=== PATIENT | female | born 1975 | race Caucasian/White ===

== ENCOUNTER 2021-11-08 14:01 | Observation (INO) | payer MEDICARE ==
[2021-11-08 17:17] LABS: Appearance,Urine Clear (Clear); Bilirubin,Urine Negative (Negative); Blood,Urine Negative (Negative); Color,Urine Yellow; Glucose,Urine (UA) Negative (Negative); Ketones,Urine 1+ (Negative); Leukocyte Esterase,Urine Negative (Negative); Nitrite,Urine Negative (Negative); PH, Urine 5.5 (5.0-8.0); Protein,Urine Negative (Negative); Specific Gravity,Urine 1.016 (1.001-1.035); Urobilinogen,Urine <2.0 mg/dL (<2.0)
[2021-11-08] MEDS ORDERED: SODIUM CHLORIDE 0.9% 2,000 ML IV STA (17:20)
[2021-11-08] MEDS ORDERED: ONDANSETRON 4 MG/2 ML VIAL IVP STA (17:20)
[2021-11-08] MEDS ORDERED: ACETAMINOPHEN TAB 500 MG TAB PO STA (17:21)
[2021-11-08 18:33] LABS: Basophils % (A) 0 %; Eosinophils # (A) 0.2 k/uL (0-0.7); Eosinophils % (A) 2 %; HCT 45.2 % (34.0-46.0); HGB 14.7 gm/dL (11.4-16.0); Lymphocytes # (A) 2.8 k/uL (1.0-4.8); Lymphocytes % (A) 28 %; MCHC 32.5 g/dL (31.0-37.0); MCV 95.4 fL (80.0-100.0); Mean Platelet Volume 9.7; Monocytes # (A) 0.3 k/uL (0-1.0); Monocytes % (A) 3 %; Neutrophils # (A) 6.6 k/uL (1.3-7.7); Neutrophils % (A) 65 %; Platelet Count 198 k/uL (150-450); RBC 4.74 m/uL (3.80-5.40); RDW 13.4 % (11.5-15.5); WBC 10.2 k/uL (3.8-10.6)
--- NOTE | 2021-11-08 18:43 | ED ---
Abdominal Pain HPI - General Chief Complaint: Abdominal Pain Stated Complaint: Pancreatitis Time Seen by Provider: 11/08/21 17:12 Source: patient Mode of arrival: ambulatory Limitations: no limitations - History of Present Illness Initial Comments: Patient is a 46-year-old female with past medical history of type 1 diabetes who presents to the emergency department with a chief complaint of her abdominal pain. Patient states she was diagnosed with pancreatitis for the first time at [facility] today. Patient was unhappy with her roommate in the hospital and wanted to be a hospital closer to home. States she has been experiencing upper middle abdominal pain for the past 3 days. Describes it as a continuous severe aching with radiation to the chest and back. Patient states the pain started after she started taking Myrbetriq which was a new prescription for her. Endorses nausea without vomiting. Denies fever, chills, sweating, d iarrhea, burning with urination, blood in the urine, and other concerns. Last bowel movement was today which she states was normal, nonbloody. Admits to drinking 2-3 shots of liquor tonight. Admits to daily marijuana use. - Related Data Allergies Allergy/AdvReac Type Severity Reaction Status Date / Time medroxyprogesterone Allergy Unknown Verified 11/08/21 15:12 [From Depo-Provera] tree nut [Pecan] Allergy Unknown Verified 11/08/21 15:12 walnut Allergy Unknown Verified 11/08/21 15:12 Review of Systems ROS Statement: Those systems with pertinent positive or pertinent negative responses have been documented in the HPI. ROS Other: All systems not noted in ROS Statement are negative. Past Medical History Past Medical History: Diabetes Mellitus History of Any Multi-Drug Resistant Organisms: None Reported Past Surgical History: Tubal Ligation Additional Past Surgical History / Comment(s): D/C Past Psychological History: No Psychological Hx Reported Smoking Status: Current every day smoker Past Alcohol Use History: Heavy Past Drug Use History: Marijuana General Exam Limitations: no limitations General appearance: alert Head exam: Present: atraumatic, normocephalic, normal inspection Eye exam: Present: normal appearance, PERRL, EOMI. Absent: scleral icterus, conjunctival injection, periorbital swelling Respiratory exam: Present: normal lung sounds bilaterally. Absent: respiratory distress, wheezes, rales, rhonchi, stridor Cardiovascular Exam: Present: regular rate, normal rhythm, normal heart sounds. Absent: systolic murmur, diastolic murmur, rubs, gallop, clicks GI/Abdominal exam: Present: soft, tenderness (epigastric), normal bowel sounds. Absent: distended, guarding, rebound, rigid Back exam: Present: normal inspection. Absent: tenderness, paraspinal tenderness, vertebral tenderness Neurological exam: Present: alert, oriented X3, CN II-XII intact Psychiatric exam: Present: normal affect, normal mood Skin exam: Present: warm, dry, intact, normal color. Absent: rash Course Vital Signs 11/08/21 11/08/21 15:06 18:37 Temperature 98.2 F Pulse Rate 87 87 Respiratory 16 18 Rate Blood Pressure 173/99 160/83 O2 Sat by Pulse 99 99 Oximetry Medical Decision Making - Medical Decision Making This is a 46-year-old female who presents after pancreatitis diagnosis [facility] today. Thorough history and examination were performed. Patient is well-appearing. She is a daily alcohol user and started new medication Myrbetriq 3 days ago. The abdomen is soft. There is moderate epigastric tenderness. Pain and nausea controlled. Patient did not have any episodes of vomiting in the emergency department. Laboratory studies obtained. White blood cell count is within normal limits at 10.2. Lipase is elevated at 2301. Amylase is elevated to 289. Gallbladder ultrasound was obtained which shows no gallstones or dilated ducts. There does not appear to be a correlation between myrbetriq and pancreatitis. With normal gallbladder ultrasound this appears to be alcohol induced pancreatitis. Results discussed with patient who is agreeable to admission. Case discussed with Dr. Mullins who accepts admission. Patient is on soft liquid diet. Admitted in stable condition. Dr. Silvestre is my attending. - Lab Data Result diagrams: 11/08/21 18:29 11/08/21 18:29 Lab Results 11/08/21 11/08/21 11/08/21 Range/Units 17:02 17:04 18:29 WBC 10.2 (3.8-10.6) k/uL RBC 4.74 (3.80-5.40) m/uL Hgb 14.7 (11.4-16.0) gm/dL Hct 45.2 (34.0-46.0) % MCV 95.4 (80.0-100.0) fL MCH 31.0 (25.0-35.0) pg MCHC 32.5 (31.0-37.0) g/dL RDW 13.4 (11.5-15.5) % Plt Count 198 (150-450) k/uL MPV 9.7 Neutrophils % 65 % Lymphocytes % 28 % Monocytes % 3 % Eosinophils % 2 % Basophils % 0 % Neutrophils # 6.6 (1.3-7.7) k/uL Lymphocytes # 2.8 (1.0-4.8) k/uL Monocytes # 0.3 (0-1.0) k/uL Eosinophils # 0.2 (0-0.7) k/uL Basophils # 0.0 (0-0.2) k/uL Sodium (137-145) mmol/L Potassium (3.5-5.1) mmol/L Chloride (98-107) mmol/L Carbon Dioxide (22-30) mmol/L Anion Gap mmol/L BUN (7-17) mg/dL Creatinine (0.52-1.04) mg/dL Est GFR (CKD-EPI)AfAm (>60 ml/min/1.73 sqM) Est GFR (CKD-EPI)NonAf (>60 ml/min/1.73 sqM) Glucose (74-99) mg/dL Plasma Lactic Acid Russell (0.7-2.0) mmol/L Calcium (8.4-10.2) mg/dL Total Bilirubin (0.2-1.3) mg/dL AST (14-36) U/L ALT (4-34) U/L Alkaline Phosphatase (38-126) U/L Troponin I (0.000-0.034) ng/mL Total Protein (6.3-8.2) g/dL Albumin (3.5-5.0) g/dL Amylase (30-110) U/L Lipase (23-300) U/L Urine Color Yellow Urine Appearance Clear (Clear) Urine pH 5.5 (5.0-8.0) Ur Specific [place] 1.016 (1.001-1.035) Urine Protein Negative (Negative) Urine Glucose (UA) Negative (Negative) Urine Ketones 1+ H (Negative) Urine Blood Negative (Negative) Urine Nitrite Negative (Negative) Urine Bilirubin Negative (Negative) Urine Urobilinogen <2.0 (<2.0) mg/dL Ur Leukocyte Esterase Negative (Negative) Urine HCG, Qual Not Detected (Not Detectd) 11/08/21 11/08/21 11/08/21 Range/Units 18:29 18:29 18:29 WBC (3.8-10.6) k/uL RBC (3.80-5.40) m/uL Hgb (11.4-16.0) gm/dL Hct (34.0-46.0) % MCV (80.0-100.0) fL MCH (25.0-35.0) pg MCHC (31.0-37.0) g/dL RDW (11.5-15.5) % Plt Count (150-450) k/uL MPV Neutrophils % % Lymphocytes % % Monocytes % % Eosinophils % % Basophils % % Neutrophils # (1.3-7.7) k/uL Lymphocytes # (1.0-4.8) k/uL Monocytes # (0-1.0) k/uL Eosinophils # (0-0.7) k/uL Basophils # (0-0.2) k/uL Sodium 137 (137-145) mmol/L Potassium 3.9 (3.5-5.1) mmol/L Chloride 105 (98-107) mmol/L Carbon Dioxide 26 (22-30) mmol/L Anion Gap 6 mmol/L BUN 6 L (7-17) mg/dL Creatinine 0.58 (0.52-1.04) mg/dL Est GFR (CKD-EPI)AfAm >90 (>60 ml/min/1.73 sqM) Est GFR (CKD-EPI)NonAf >90 (>60 ml/min/1.73 sqM) Glucose 154 H (74-99) mg/dL Plasma Lactic Acid Russell 0.9 (0.7-2.0) mmol/L Calcium 9.3 (8.4-10.2) mg/dL Total Bilirubin 0.7 (0.2-1.3) mg/dL AST 25 (14-36) U/L ALT 28 (4-34) U/L Alkaline Phosphatase 100 (38-126) U/L Troponin I <0.012 (0.000-0.034) ng/mL Total Protein 6.4 (6.3-8.2) g/dL Albumin 3.7 (3.5-5.0) g/dL Amylase 289 H (30-110) U/L Lipase 2301 H (23-300) U/L Urine Color Urine Appearance (Clear) Urine pH (5.0-8.0) Ur Specific [place] (1.001-1.035) Urine Protein (Negative) Urine Glucose (UA) (Negative) Urine Ketones (Negative) Urine Blood (Negative) Urine Nitrite (Negative) Urine Bilirubin (Negative) Urine Urobilinogen (<2.0) mg/dL Ur Leukocyte Esterase (Negative) Urine HCG, Qual (Not Detectd) Disposition Clinical Impression: Pancreatitis Disposition: ADMITTED IP TO THIS HOSP Condition: Good Referrals: Jorge Esquivel MD [Primary Care Provider] - 1-2 days Decision Time: 20:39
[2021-11-08 18:46] LABS: ALT 28 U/L (4-34); AST 25 U/L (14-36); African American GFR (CKD) >90 (>60 ml/min/1.73 sqM); Albumin 3.7 g/dL (3.5-5.0); Alkaline Phosphatase 100 U/L (38-126); Amylase 289 U/L (30-110); Anion Gap 6 mmol/L; Blood Urea Nitrogen 6 mg/dL (7-17); Calcium 9.3 mg/dL (8.4-10.2); Carbon Dioxide 26 mmol/L (22-30); Chloride 105 mmol/L (98-107); Glucose 154 mg/dL (74-99); Non-African American GFR(CKD) >90 (>60 ml/min/1.73 sqM); Potassium 3.9 mmol/L (3.5-5.1); Sodium 137 mmol/L (137-145); Total Bilirubin 0.7 mg/dL (0.2-1.3); Total Protein 6.4 g/dL (6.3-8.2)
[2021-11-08 19:15] LABS: Lipase 2301 U/L (23-300)
--- NOTE | 2021-11-08 20:19 | US ---
EXAMINATION TYPE: US gallbladder DATE OF EXAM: 11/08/2021 COMPARISON: NONE CLINICAL HISTORY: Abdominal pain. Abd pain TECHNIQUE: Multiple sonographic images of the right upper quadrant are obtained. FINDINGS: EXAM MEASUREMENTS: Liver Length: 18.1 cm Gallbladder Wall: 0.23 cm CBD: 0.38 cm Right Kidney: 12.0 x 5.4 x 4.9 cm MILK TESTER NOTES: Pancreas: Head obscured by bowel gas. Other parts wnl Liver: Heterogeneous, increased attenuation Gallbladder: wnl Evidence for sonographic Palacios's sign: No CBD: wnl Right Kidney: wnl IMPRESSION: Negative exam. No gallstones or dilated ducts. No focal liver defect.
[2021-11-08] MEDS ORDERED: ONDANSETRON 4 MG/2 ML VIAL IVP PRN (20:43)
[2021-11-08] MEDS: SODIUM CHLORIDE 0.9% 1,000 ML IV SCH (21:13)
[2021-11-09] MEDS ORDERED: MORPHINE SULFATE 2 MG/ML SYRINGE IVP PRN (01:12)
[2021-11-09] MEDS ORDERED: NICOTINE 14MG/24HR PATCH TRANSDERM STA (01:15)
[2021-11-09] MEDS ORDERED: ACETAMINOPHEN TAB 325 MG TAB PO STA (01:15)
--- NOTE | 2021-11-09 01:15 | P.HPIM ---
History of Present Illness H&P Date: 11/08/21 The patient is a 46-year-old female with a PMH of type 1 diabetes mellitus, on insulin pump, tobacco abuse, and alcohol abuse who presents to the emergency room with complaints of abdominal pain. Patient reports that earlier today, she had gone to [facility] for similar complaint when she was diagnosed with pancreatitis and was admitted to the hospital. She reports however that she was unhappy with the other patient in the room and decided to leave AGAINST MEDICAL ADVICE. She reports that over the past 3-4 days, she has had a sharp and aching epigastric abdominal discomfort with nausea, and anorexia. She reports that the pain is 3 out of 10 at the time of interview, but at maximum is 10 out of 10, nonradiating, without exacerbating or alleviating features. Patient reports that over the past few weeks, she has been drinking several shots of hard liquor daily. She also reports recently starting Myrbetriq for an overactive bladder. Patient had a recurrence of chest discomfort, shortness of breath, fever, chills, cough, diarrhea. Gallbladder ultrasound the emergency room was unremarkable with lipase 2301 and amylase 289. Review of systems: Pertinent positives and negatives as discussed in HPI, a complete review of systems was performed and all other systems are negative. Physical examination: General: non toxic, no distress, appears at stated age, overweight Derm: no unusual rashes/lesions, warm Head: atraumatic, normocephalic, symmetric Eyes: EOMI, no lid lag, anicteric sclera, pupils equal round reactive to light ENT: Nose and ears atraumatic Neck: No cervical lymphadenopathy, trachea midline, supple Mouth: no lip lesion, mucus membranes moist Cardiovascular: S1S2 reg, no murmur, positive dorsalis pedis pulse bilateral, no edema Lungs: CTA bilateral, no rhonchi, no rales, no accessory muscle use Abdominal: soft, epigastric tenderness, no guarding Ext: muscle strength 5 out of 5 in all 4 extremities grossly, no gross muscle atrophy, no contractures, Neuro: CN II-XI grossly intact, no gross focal neuro deficits Psych: Alert, oriented, appropriate affect Assessment/plan Acute alcoholic pancreatitis -Nothing by mouth for now -IV fluids -Pain control -Antiemetics -Monitor lipase levels -Advised on importance of cessation from alcohol use -Thiamine, multivitamin -Monitor electrolytes daily -Pancreatitis not a known side effect of Mybetriq Chronic conditions: Type I DM on insulin pump -Insulin sliding scale blood glucose monitoring for now -Hold insulin pump as patient is currently nothing by mouth DVT prophylaxis -Heparin subcu The patient is admitted with an anticipated less than 2 midnight stay for evaluation of pancreatitis CODE STATUS: Full Code Discussed with: Patient Anticipated discharge date: In a.m. Anticipated discharge place: Home Past Medical History Past Medical History: Diabetes Mellitus History of Any Multi-Drug Resistant Organisms: None Reported Past Surgical History: Tubal Ligation Additional Past Surgical History / Comment(s): D/C Past Psychological History: No Psychological Hx Reported Smoking Status: Current every day smoker Past Alcohol Use History: Heavy Past Drug Use History: Marijuana - Past Family History Mother Family Medical History: Skin Disorder Medications and Allergies Home Medications Medication Instructions Recorded Confirmed Type Insulin Aspart (For Pump) [NovoLOG 0.01 unit SQ-PUMP CONTINUOUS 11/08/21 11/08/21 History (For Pump)] Allergies Allergy/AdvReac Type Severity Reaction Status Date / Time medroxyprogesterone Allergy Unknown Verified 11/08/21 21:16 [From Depo-Provera] tree nut [Pecan] Allergy Unknown Verified 11/08/21 21:16 walnut Allergy Unknown Verified 11/08/21 21:16 Physical Exam Vitals: Vital Signs Temp Pulse Resp BP Pulse Ox 11/08/21 18:37 87 18 160/83 99 11/08/21 15:06 98.2 F 87 16 173/99 99 Intake and Output 11/08/21 11/08/21 11/09/21 14:59 22:59 06:59 Other: Weight 92.986 kg 92.986 kg Results CBC & Chem 7: 11/08/21 18:29 11/08/21 18:29 Labs: Abnormal Lab Results - Last 24 Hours (Table) 11/08/21 11/08/21 Range/Units 17:02 18:29 BUN 6 L (7-17) mg/dL Glucose 154 H (74-99) mg/dL Amylase 289 H (30-110) U/L Lipase 2301 H (23-300) U/L Urine Ketones 1+ H (Negative) Thrombosis Risk Factor Assmnt - Choose All That Apply Any of the Below Risk Factors Present?: Yes Each Factor Represents 1 point: Age 41-60 years Thrombosis Risk Factor Assessment Total Risk Factor Score: 1 Thrombosis Risk Factor Assessment Level: Low Risk
[2021-11-09 02:04] LABS: Appearance,Urine Clear (Clear); Bilirubin,Urine Negative (Negative); Blood,Urine Negative (Negative); Color,Urine Light Yellow; Glucose,Urine (UA) 1+ (Negative); Ketones,Urine 1+ (Negative); Leukocyte Esterase,Urine Negative (Negative); Nitrite,Urine Negative (Negative); PH, Urine 6.5 (5.0-8.0); Protein,Urine Negative (Negative); Urobilinogen,Urine <2.0 mg/dL (<2.0)
[2021-11-09 07:28] LABS: Glucose,Whole Blood 171 mg/dL (70-110)
[2021-11-09 07:46] VITALS: RESP 18
[2021-11-09] MEDS ORDERED: HEPARIN SODIUM,PORCINE/PF 5,000 UNIT/0.5 ML SYRINGE SQ SCH (08:00)
[2021-11-09] MEDS: INSULIN ASPART (NovoLOG) 100 UNIT/ML VIAL SQ SCH ×2 (08:50→13:11)
[2021-11-09] MEDS: SODIUM CHLORIDE 0.9% 1,000 ML IV SCH ×2 (08:51→13:11)
[2021-11-09] MEDS ORDERED: MULTIVITAMINS, THERA 1 EACH TAB PO SCH (09:00)
[2021-11-09] MEDS ORDERED: THIAMINE 100 MG TAB PO SCH (09:00)
[2021-11-09] MEDS ORDERED: BUTALB/APAP/CAFF 50-325-40MG TAB PO PRN (09:13)
[2021-11-09 09:29] LABS: African American GFR (CKD) 122.1 (60.0-200.0); Albumin 3.5 g/dL (3.8-4.9); Albumin/Globulin Ratio 1.52 (1.60-3.17); Anion Gap 8.1 mmol/L (10.00-18.00); BUN/Creat Ratio 8.69 Ratio (12.00-20.00); Blood Urea Nitrogen 5.6 mg/dL (9.0-27.0); Calcium 8.8 mg/dL (8.7-10.3); Carbon Dioxide 24.8 mmol/L (20.0-27.5); Globulin 2.3 g/dL (1.6-3.3); Non-African American GFR(CKD) 105.4 (60.0-200.0); Potassium 4.4 mmol/L (3.5-5.5); Total Bilirubin 0.5 mg/dL (0.30-1.20); Total Protein 5.9 g/dL (6.2-8.2)
[2021-11-09 11:51] LABS: Glucose,Whole Blood 179 mg/dL (70-110)
[2021-11-09 14:17] VITALS: BP 134/75; PULSE 71; TEMP 97.6
--- NOTE | 2021-11-09 14:43 | P.DS ---
Providers Date of admission: 11/08/21 22:56 Expected date of discharge: 11/09/21 Attending physician: Jose Mullins MD Primary care physician: Jorge Esquivel Hospital Course: Discharge Diagnosis: Acute alcoholic pancreatitis, patient was educated on association of pancreatitis with daily alcohol use, patient verbalized understanding stating she is not going to drink again. Patient instructed to follow-up outpatient with PCP in 1-2 days and gastroenterology in 1 week. Type 1 diabetes mellitus, continue home insulin pump medication regimen and monitor blood glucose levels closely. Alcohol abuse, recommend total alcohol cessation. Nicotine dependence, recommend smoking cessation. Daily cannabis use, recommend cessation Hospital Course: Patient is a very pleasant 46-year-old female with a past medical history of type 1 insulin-dependent diabetes mellitus with insulin pump, nicotine dependence, daily cannabis use, and alcohol abuse. Patient presented to the emergency department with a chief complaint of abdominal pain. In the emergency department patient was found to have acute pancreatitis with lipase of 2301 and amylase 289. An ultrasound of her gallbladder was completed negative for acute process showing no evidence of gallstones or dilated bile ducts and no focal liver defects. EKG also completed showing sinus rhythm at 71 bpm with no noted T-wave or ST abnormalities. Remainder of labs including CBC and CMP were unremarkable. Urinalysis negative for infection and urine hCG negative for . Patient was admitted under our services and placed on bowel rest with aggressive IV fluid hydration. Overnight patient reports resolution of previously reported abdominal pain and discomfort. She was advanced to clear liquid diet and tolerated well. Patient then advanced to a low-fat diet and tolerating well. Patient denies any further episodes of abdominal pain, nausea, vomiting, or any other complaints. Patient has been educated on association of pancreatitis with daily alcohol use, patient verbalized understanding stating she is not going to drink again. Repeat daily labs demonstrated significant imp rovement in lipase levels and are down to 467 this morning. Patient states that she needs to get home to her 7 children, 7 dogs, and 9 grandchildren. Patient instructed to avoid all alcohol use and to follow up outpatient with PCP in 1-2 days and gastroenterology in 1 week. Vital signs unremarkable with blood pressure 134/75, heart rate 71, respiratory rate 18, temp 97.6F, and SpO2 of 99% on room air. Patient stable for discharge home at this time. Physical examination: Patient seen and examined at bedside.[] Vital signs reviewed and stable. General: Nontoxic, no distress and appears stated age. Derm: Skin warm and dry, normal coloration for ethnicity. Head: Atraumatic, normocephalic and symmetric. Eyes: EOMs intact, no lid lag, and anicteric sclera Mouth: no lip lesions, mucus membranes moist Cardiovascular: regular rate and rhythm with normal S1S2, no murmur, positive posterior tibial pulses bilaterally, and cap refill < 2 seconds. Lungs: Respirations even, regular, and unlabored on room air. Lungs CTA bilaterally, no rhonchi, no rales, no wheezing, and no accessory muscle usage. Abdominal: soft, nontender to palpation, no guarding, no appreciable organomegaly Ext: ROM intact. No gross muscle atrophy, no edema, no contractures Neuro: Speech clear, face symmetrical and CN II-XII grossly intact with no noted focal neuro deficits Psych: Alert and oriented to person, place, time, and situation. Appropriate and pleasant affect. A total of 33 minutes of time were spent preparing this complex discharge summary. Pt was discharged on 11/09/21 I reviewed the documentation as provided by the FRANCISCO above, who is the original author of this note. I agree with the documented assessment and plan, with the following changes: none Patient Condition at Discharge: Stable Plan - Discharge Summary Discharge Rx Participant: No New Discharge Prescriptions: Continue Insulin Aspart (For Pump) [NovoLOG (For Pump)] 0.01 unit SQ-PUMP CONTINUOUS Discharge Medication List Insulin Aspart (For Pump) [NovoLOG (For Pump)] 0.01 unit SQ-PUMP CONTINUOUS 11/08/21 [History] Follow up Appointment(s)/Referral(s): Jorge Esquivel MD [Primary Care Provider] - 1-2 days Nadira Brand MD [STAFF PHYSICIAN] - 1 Week Activity/Diet/Wound Care/Special Instructions: Activity: As tolerated. Take breaks as needed. Diet: Follow low-fat diet and avoid any alcoholic beverages, as further consumption of alcoholic beverages can result in recurrent episodes of alcohol induced pancrea titis. Special Instructions: Take all of your medications as directed and remember to keep all of your doctor's appointments and follow-up as needed. Thank you for allowing us to participate in your care, it was truly a pleasure having you for our patient!!! Discharge Disposition: HOME SELF-CARE
== END 2021-11-09 16:35 | disposition home or self-care (01) ==
LOC: EC 14:01 → 6NMEDSUR 22:56
PROVIDERS: ADMIT Internal Medicine; ATTEND Internal Medicine
DX: K85.20 Alcohol induced acute pancreatitis without necrosis or infection (principal); E10.9 Type 1 diabetes mellitus without complications; F10.10 Alcohol abuse, uncomplicated; N32.81 Overactive bladder; F17.200 Nicotine dependence, unspecified, uncomplicated; Z79.4 Long term (current) use of insulin; Z88.8 Allergy status to other drugs, medicaments and biological substances; Z91.018 Allergy to other foods; Z96.41 Presence of insulin pump (external) (internal); Z98.51 Tubal ligation status; Z71.41 Alcohol abuse counseling and surveillance of alcoholic; Z71.6 Tobacco abuse counseling
CPT/HCPCS: 96361; 96374; 99285; 36415; 93005; 80053 ×2; 82150; 83605; 83690 ×2; 84484; 85025; 81003; 81025 ×2; 76705; G0378 ×2; S4990; J2405